=== PATIENT | male | born 1990 | race Caucasian/White ===

== ENCOUNTER 2017-01-16 00:05 | Emergency (ER) | payer BC ==
--- NOTE | ~2017-01-16 | CR20 ---
[facility]. [facility] A Service of [facility] & [facility] RADIOLOGY TEXT RESULTS PATIENT: TONI NEVILLE LOCATION: SED : [birth year] UNIT #: [id number] AGE: [address]: Davian Oodm SEX: M ORDER DR: [id number] [place] [address] [id number] MR#: [id number] Acc #: [id number] NAME: TONI NEVILLE : 1990 SEX: M STUDY DATE/TIME: 01/16/2017 0:31 UNIT: SED ROOM: STUDY DESCRIPTION: CR Ankle Min 3 Views Lt Attending Physician: Davian Odom P.A.-C. Ordering Physician: Davian Odom P.A.-C. MEDICAL IMAGING REPORT This report is preliminary unless electronic signature is present. EXAM Left ankle series. INDICATIONS Left ankle pain after an injury today. PROCEDURE Three views of the left ankle. COMPARISON None. FINDINGS No acute fracture or dislocation. IMPRESSION No acute findings. Dictated by... Carl Antunez M.D. THIS IS AN ELECTRONICALLY VERIFIED REPORT Carl Antunez M.D. at 01/19/2017 7:19 AM EED/jo-ann TD: 01/16/2017 09:17 JOB #: [id number] MEDICAL IMAGING REPORT Page 1 of 1
--- NOTE | ~2017-01-16 | CR126 ---
[facility]. [facility] A Service of [facility] & [facility] RADIOLOGY TEXT RESULTS PATIENT: TONI NEVILLE LOCATION: SED : [birth year] UNIT #: [id number] AGE: [address]: Davian Odom SEX: M ORDER DR: [id number] [place] [address] [id number] E MR#: [id number] Acc #: [id number] NAME: TONI NEVILLE : 1990 SEX: M STUDY DATE/TIME: 01/16/2017 0:31 UNIT: SED ROOM: STUDY DESCRIPTION: CR Foot Complete Min 3 View Lt Attending Physician: Davian Odom P.A.-C. Ordering Physician: Davian Odom P.A.-C. MEDICAL IMAGING REPORT This report is preliminary unless electronic signature is present. EXAM Left foot series. INDICATIONS Left foot pain after an injury today. PROCEDURE Three views of the left foot. COMPARISON None. FINDINGS No acute fracture or dislocation. IMPRESSION No acute findings. Dictated by... Carl Antunez M.D. THIS IS AN ELECTRONICALLY VERIFIED REPORT Carl Antunez M.D. at 01/19/2017 7:19 AM DORCAS/jo-ann TD: 01/16/2017 09:19 JOB #: [id number] MEDICAL IMAGING REPORT Page 1 of 1
[~2017-01-16 00:05] MED LIST: NO MEDICATIONS
== END 2017-01-16 01:27 | disposition home or self-care (01) ==
LOC: SED 00:05
DX: S93.402A Sprain of unspecified ligament of left ankle, initial encounter (principal); F17.210 Nicotine dependence, cigarettes, uncomplicated; W18.30XA Fall on same level, unspecified, initial encounter; Y92.009 Unspecified place in unspecified non-institutional (private) residence as the place of occurrence of the external cause
CPT/HCPCS: 29515; 73610; 73630; 99283